=== PATIENT | female | born 2000 | race American Indian/Alaskan Native ===

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

== ENCOUNTER 2018-01-20 20:10 | Outpatient (CLI) | payer MEDICAID ==
[2018-01-20] MEDS ORDERED: LACTATED RINGERS 1,000 ML IV ONE (20:33)
[2018-01-20 20:44] VITALS: BP 119/66
[2018-01-20 20:52] LABS: Bilirubin,Urine NEG (Negative); Blood,Urine NEG (Negative); Color,Urine Yellow (Yellow); Mucus,Urine 3+ /HPF; Urobilinogen,Urine < 2.0 mg/dL (<2.0)
--- NOTE | 2018-01-20 22:48 | Ultrasound Report ---
FINAL REPORT PROCEDURE: US OB > = 14 WK FETUS ADD GEST/twin B TECHNIQUE: Real-time limited sonographic examination was performed for evaluation of size, position, heartbeat, fluid volume for twin B with image documentation (1 or more fetuses). CPT 92792 HISTORY: vaginal spotting and decrease mvmt- twins COMPARISON: No prior studies are available for comparison. FINDINGS: MATERNAL There is limited evaluation of the cervix with transabdominal technique, however there may be funneling. Transabdominal measurement of the cervix is 0.7 centimeters FETUS B: IUP: Twin intrauterine gestation. Position: Transverse with head at the maternal right. Placental position: Anterior and grade 0, without previa . Amniotic fluid volume: Low deepest vertical pocket measures 5.1 centimeters Heart rate and rhythm: 145 BPM, Regular . anatomic survey: Not performed. MEASUREMENTS BPD: 4.8 centimeters, 20 weeks 2 days. HC: 17.7 centimeters, 20 weeks 1 day. AC: 14.8 centimeters, 20 weeks 0 days. FL: 3.2 centimeters, 19 weeks 5 days. Mean Gestational Age (composite criteria): 20 weeks 0 days. Ratio biometry: Normal . Estimated Weight: 330 grams. Estimated Due Date (earliest scan): 06/09/2018. IMPRESSION: 1. Twin living intrauterine gestation at approximately 20 weeks 0 days. 2. EDC by US 06/09/2018 based on biometric measurements.
--- NOTE | 2018-01-20 22:51 | Ultrasound Report ---
FINAL REPORT PROCEDURE: US OB > = 14 WEEKS FETUS A TECHNIQUE: Real-time limited sonographic examination was performed for evaluation of size, position, heartbeat, fluid volume for twin A with image documentation (1 or more fetuses). CPT 12651 HISTORY: vaginal spotting and decrease mvmt- twins COMPARISON: No prior studies are available for comparison. FINDINGS: MATERNAL There is limited evaluation of the cervix with transabdominal technique. Cervix is measured at 0.7 centimeters in length with funneling. FETUS A IUP: Twin living intrauterine . Position: Cephalic. Placental position: Anterior and grade 0, without previa . Amniotic fluid volume: Deepest vertical pocket measures 2.7 centimeters Heart rate and rhythm: 150 BPM, Regular . anatomic survey: Not performed. MEASUREMENTS BPD: 4.5 centimeters, 19 weeks 3 days. HC: 17.2 centimeters, 19 weeks 5 days. AC: 13.7 centimeters, 19 weeks 1 day. FL: 2.9 centimeters, 19 weeks 0 days. Mean Gestational Age (composite criteria): 19 weeks 2 days. Ratio biometry: Normal . Estimated Weight: 276 grams. Estimated Due Date (earliest scan): 06/14/2018 based on biometric measurements. IMPRESSION: 1. Twin living intrauterine gestation at approximately 19 weeks 2 days. 2. EDC by US 06/14/2018. 3. There is limited evaluation of the cervix, however the cervix appears shortened, with funneling. This could be more accurately evaluated with transvaginal ultrasound, as clinically indicated
[2018-01-20] MEDS ORDERED: TYLENOL PO PRN (22:56)
[2018-01-20] MEDS ORDERED: AMBIEN PO PRN (22:56)
[2018-01-20] MEDS ORDERED: ZOFRAN IV PRN (22:56)
[2018-01-20] MEDS ORDERED: COLACE PO PRN (22:56)
[2018-01-20] MEDS ORDERED: POLYCILLIN/NS 2 GM/100 ML 2 GM/100 ML BAG IV ONE (22:56)
[2018-01-20] MEDS ORDERED: ALUM-MAG HYDROX-SIMETH 200-200-20MG/5ML PO PRN (22:56)
[2018-01-20] MEDS ORDERED: LACTATED RINGERS 1,000 ML IV SCH (23:00)
[2018-01-20] MEDS ORDERED: MAGNESIUM SULFATE 4GM/100ML 4 GM/100 ML BAG IV ONE (23:02)
[2018-01-20] MEDS ORDERED: MAGNESIUM SULFATE 40GM/1000ML 40 GM/1,000 ML BAG IV SCH (23:45)
[2018-01-21] MEDS ORDERED: AMPICILLIN/NS 1 GM/50 ML 1 GM/50 ML BAG IV SCH (03:00)
[2018-01-21] MEDS ORDERED: PRENATAL VITAMIN PO SCH (10:00)
== END 2018-01-20 23:30 | disposition home or self-care (01) ==
LOC: TRG 20:10
PROVIDERS: ATTEND Obstetrics & Gynecology
DX: O47.02 False labor before 37 completed weeks of gestation, second trimester (principal); Z3A.21 21 weeks gestation of pregnancy; Z87.891 Personal history of nicotine dependence
CPT/HCPCS: 76805; 76810; 81001; 96360; J7120

== ENCOUNTER 2020-06-30 13:44 | Outpatient (CLI) | payer MEDICAID ==
[2020-06-30 16:26] VITALS: BP 126/71
--- NOTE | 2020-06-30 16:49 | Ultrasound Report ---
ULTRASOUND BIOPHYSICAL PROFILE INDICATION / CLINICAL INFORMATION: well being. COMPARISON: None available. FINDINGS: BREATHING MOVEMENT = 0 GROSS BODY MOVEMENT = 2 TONE = 2 QUALITATIVE AMNIOTIC FLUID VOLUME = 2 TOTAL BIOPHYSICAL SCORE = 6/8 PRESENTATION: Cephalic. HEART RATE (beats per minute): 162 IMPRESSION: 1. biophysical profile = 01/18 . No breathing movements were identified. Signer Name: Kush Worthington MD Signed: 06/30/2020 4:48 PM Workstation Name: [id number]
== END 2020-06-30 17:13 | disposition home or self-care (01) ==
LOC: TRG 13:44 → APU 13:48 → TRG 17:13
PROVIDERS: ATTEND Obstetrics & Gynecology
DX: Z34.83 Encounter for supervision of other normal pregnancy, third trimester (principal); Z3A.31 31 weeks gestation of pregnancy
CPT/HCPCS: 76819